=== PATIENT | female | born 1930 | race Caucasian/White ===

== ENCOUNTER 2016-10-06 21:00 | Inpatient (IN) | payer MEDICARE ==
[2016-10-06 21:43] VITALS: BP 159/74
[2016-10-06] MEDS: D5-0.45NS 1,000 ML IV SCH (23:40)
[2016-10-07] MEDS ORDERED: guaiFENesin 200 MG/10 ML UDC ONE (04:32)
[2016-10-07] MEDS: methylPREDNISolone SS 40 mg Vial IVP SCH ×3 (04:34→20:55)
[2016-10-07] MEDS ORDERED: Albuterol Nebulizer 2.5mg/3mL HHN ONE ×2 (04:36→07:49)
[2016-10-07] MEDS ORDERED: Ipratropium Neb 0.5 mg/2.5 mL UD HHN ONE ×2 (04:37→07:49)
[2016-10-07] MEDS: Ipratropium Neb 0.5 mg/2.5 mL UD IH SCH ×2 (04:43→07:29)
[2016-10-07] MEDS: guaiFENesin 200 MG/10 ML UDC PO PRN (04:46)
[2016-10-07] MEDS: INSULIN ASPART, RECOMBINANT 100 UNITS/ML SUBQ SCH ×4 (06:39→20:56)
[2016-10-07 07:07] LABS: % BASOPHILS 0.2 % (0.0-2.0); % EOSINOPHILS 0.1 % (0.0-5.0); % LYMPHOCYTES 10.9 % (20.0-50.0); % MONOCYTES 4.4 % (2.0-10.0); % NEUTROPHILS 84.4 % (40.0-80.0); HEMATOCRIT 34.6 % (35.0-45.0); HEMOGLOBIN 11.8 gm/dL (11.7-16.1); MEAN CORPUSCULAR HEMOGLOBIN 30.4 pg (27.0-31.0); MEAN CORPUSCULAR HGB CONC 34.2 pg (28.0-36.0); MEAN PLATELET VOLUME 7.4 fl; NEUTROPHILE ABSOLUTE 6.2 Th/cmm (1.8-8.0); PLATELET COUNT 231 Th/cmm (150-400); RED BLOOD COUNT 3.88 Mil/cmm (3.80-5.20); RED CELL DISTRIBUTION WIDTH 12.9 % (11.5-20.0); WHITE BLOOD COUNT 7.3 Th/cmm (4.8-10.8)
[2016-10-07 07:28] LABS: ALB/GLOB RATIO 1.2 (1.0-1.8); ALKALINE PHOSPHATASE 66 U/L (34-104); ANION GAP 10.3 (7.0-16.0); BILIRUBIN,TOTAL 0.3 mg/dL (0.3-1.0); BUN - UREA NITROGEN 22 mg/dL (7-25); CALCIUM SERUM 9.5 mg/dL (8.6-10.3); CARBON DIOXIDE 25.8 mEq/L (21.0-31.0); CHLORIDE 103 mEq/L (98-107); GLUCOSE 153 mg/dL (70-105); MAGNESIUM 2.2 mg/dL (1.9-2.7); POTASSIUM SERUM 4.1 mEq/L (3.5-5.1); SGOT 13 U/L (13-39); SGPT/ALT 9 U/L (7-52); SODIUM SERUM 135 mEq/L (136-145)
[2016-10-07] MEDS: Budesonide 0.5 Mg/2 mL Ud HHN SCH ×3 (07:29→19:49)
[2016-10-07] MEDS ORDERED: Budesonide 0.5 Mg/2 mL Ud HHN ONE (07:49)
[2016-10-07 08:04] LABS: URINE COLOR YELLOW
[2016-10-07 08:05] LABS: URINE BACTERIA NONE SEEN /hpf (NONE SEEN); URINE BILIRUBIN NEGATIVE (NEGATIVE); URINE BLOOD NEGATIVE (NEGATIVE); URINE EPITHELIAL CELLS FEW /lpf (FEW); URINE GLUCOSE (UA) NEGATIVE (NEGATIVE); URINE KETONE NEGATIVE (NEGATIVE); URINE PH 5.5; URINE PROTEIN NEGATIVE (NEGATIVE); URINE RBC 0-2 /hpf (0-5); URINE UROBILINOGEN 0.2 E.U./dL (0.2 - 1.0)
[2016-10-07] MEDS: Pantoprazole 40 mg EC Tab PO SCH (09:00)
[2016-10-07] MEDS ORDERED: Albuterol Nebulizer 2.5mg/3mL IH SCH (09:00)
--- NOTE | 2016-10-07 09:08 | Diagnostic Imaging Report ---
Portable chest x-ray History: Shortness of breath Allowing for portable technique the heart size is normal. No focal pulmonary parenchymal processes. No hilar or mediastinal abnormalities. Impression: No acute abnormalities.
--- NOTE | 2016-10-07 09:56 | Internal Medicine Prog Note ---
Internal Medicine Subjective - Subjective Service Date: 10/07/16 ([id number]) Internal Medicine Objective - Results Result Diagrams: 10/07/16 06:02 10/07/16 06:02 Recent Labs: Laboratory Last Values WBC 7.3 Th/cmm (4.8-10.8) 10/07/16 06:02 RBC 3.88 Mil/cmm (3.80-5.20) 10/07/16 06:02 Hgb 11.8 gm/dL (11.7-16.1) 10/07/16 06:02 Hct 34.6 % (35.0-45.0) L 10/07/16 06:02 MCV 89.0 fl (81-100) 10/07/16 06:02 MCH 30.4 pg (27.0-31.0) 10/07/16 06:02 MCHC Differential 34.2 pg (28.0-36.0) 10/07/16 06:02 RDW 12.9 % (11.5-20.0) 10/07/16 06:02 Plt Count 231 Th/cmm (150-400) 10/07/16 06:02 MPV 7.4 fl 10/07/16 06:02 Neutrophils % 84.4 % (40.0-80.0) H 10/07/16 06:02 Lymphocytes % 10.9 % (20.0-50.0) L 10/07/16 06:02 Monocytes % 4.4 % (2.0-10.0) 10/07/16 06:02 Eosinophils % 0.1 % (0.0-5.0) 10/07/16 06:02 Basophils % 0.2 % (0.0-2.0) 10/07/16 06:02 Sodium 135 mEq/L (136-145) L 10/07/16 06:02 Potassium 4.1 mEq/L (3.5-5.1) 10/07/16 06:02 Chloride 103 mEq/L (98-107) 10/07/16 06:02 Carbon Dioxide 25.8 mEq/L (21.0-31.0) 10/07/16 06:02 Anion Gap 10.3 (7.0-16.0) 10/07/16 06:02 BUN 22 mg/dL (7-25) 10/07/16 06:02 Creatinine 1.0 mg/dL (0.6-1.2) 10/07/16 06:02 Est GFR ( Amer) TNP 10/07/16 06:02 Est GFR (Non-Af Amer) TNP 10/07/16 06:02 BUN/Creatinine Ratio 22.0 10/07/16 06:02 Glucose 153 mg/dL (70-105) H 10/07/16 06:02 POC Glucose 162 MG/DL (70 - 105) H 10/07/16 06:38 Hemoglobin A1c % 5.3 % (4.0-6.0) 10/07/16 06:02 Calcium 9.5 mg/dL (8.6-10.3) 10/07/16 06:02 Magnesium 2.2 mg/dL (1.9-2.7) 10/07/16 06:02 Total Bilirubin 0.3 mg/dL (0.3-1.0) 10/07/16 06:02 AST 13 U/L (13-39) 10/07/16 06:02 ALT 9 U/L (7-52) 10/07/16 06:02 Alkaline Phosphatase 66 U/L (34-104) 10/07/16 06:02 Total Protein 7.1 gm/dL (6.0-8.3) 10/07/16 06:02 Albumin 3.9 gm/dL (3.7-5.3) 10/07/16 06:02 Globulin 3.2 gm/dL 10/07/16 06:02 Albumin/Globulin Ratio 1.2 (1.0-1.8) 10/07/16 06:02 TSH 0.66 uIU/ml (0.34-5.60) 10/07/16 06:02 Urine Source CLEAN C 10/07/16 07:05 Urine Color YELLOW 10/07/16 07:05 Urine Clarity CLEAR (CLEAR) 10/07/16 07:05 Urine pH 5.5 10/07/16 07:05 Ur Specific [place] 1.015 (1.005-1.030) 10/07/16 07:05 Urine Protein NEGATIVE mg/dL (NEGATIVE) 10/07/16 07:05 Urine Glucose (UA) NEGATIVE mg/dL (NEGATIVE) 10/07/16 07:05 Urine Ketones NEGATIVE mg/dL (NEGATIVE) 10/07/16 07:05 Urine Blood NEGATIVE (NEGATIVE) 10/07/16 07:05 Urine Nitrate NEGATIVE (NEGATIVE) 10/07/16 07:05 Urine Bilirubin NEGATIVE (NEGATIVE) 10/07/16 07:05 Urine Urobilinogen 0.2 E.U./dL (0.2 - 1.0) 10/07/16 07:05 Ur Leukocyte Esterase TRACE (NEGATIVE) H 10/07/16 07:05 Urine RBC 0-2 /hpf (0-5) 10/07/16 07:05 Urine WBC 2-5 /hpf (0-5) 10/07/16 07:05 Ur Epithelial Cells FEW /lpf (FEW) 10/07/16 07:05 Urine Bacteria NONE SEEN /hpf (NONE SEEN) 10/07/16 07:05 - Physical Exam Vitals and I&O: Vital Signs Temp 98.5 F 10/07/16 08:00 Pulse 90 10/07/16 09:00 Resp 96 10/07/16 08:00 BP 157/0 10/07/16 09:00 Pulse Ox 96 10/07/16 08:00 Intake & Output 10/06/16 10/07/16 10/07/16 18:59 06:59 18:59 Weight (lbs) 190 lb Active Medications: Current Medications Acetaminophen (Tylenol) 650 mg PO Q4HR PRN PRN Reason: Pain or Fever >101 Stop: 12/05/16 22:21 Albuterol Sulfate (Albuterol 2.5mg/3ml Neb Ud) 2.5 mg HHN QIDRT [facility] Stop: 12/06/16 08:59 Budesonide (Pulmicort) 0.5 mg HHN BIDRT [facility] Stop: 12/06/16 18:59 Donepezil HCl (Aricept) 5 mg PO DAILY [facility] Stop: 12/06/16 08:59 Last Admin: 10/07/16 09:00 Dose: 5 mg Gabapentin (Neurontin) 300 mg PO TID [facility] Stop: 12/06/16 08:59 Last Admin: 10/07/16 09:00 Dose: 300 mg Guaifenesin (Robitussin) 200 mg PO Q4HR PRN PRN Reason: Cough or Congestion Stop: 12/05/16 22:21 Last Admin: 10/07/16 04:46 Dose: 200 mg Dextrose/Sodium Chloride (D5-0.45ns) 1,000 mls @ 70 mls/hr IV .[id number] [facility] Stop: 12/05/16 22:29 Last Admin: 10/06/16 23:40 Dose: 70 mls/hr Cefepime HCl 1 gm/ Dextrose 50 mls @ 100 mls/hr IV Q12HR [facility] Stop: 12/06/16 08:59 Last Admin: 10/07/16 08:59 Dose: 100 mls/hr Insulin Aspart (Novolog) 0 units SUBQ ACHS [facility] PRN Reason: Protocol Stop: 12/06/16 07:29 Last Admin: 10/07/16 06:39 Dose: Not Given Ipratropium [place] (Atrovent Neb 0.5mg/2.5ml) 0.5 mg HHN QIDRT [facility] Stop: 12/06/16 08:59 Losartan Potassium (Cozaar) 50 mg PO DAILY [facility] Stop: 12/06/16 08:59 Last Admin: 10/07/16 09:00 Dose: 50 mg Methylprednisolone Sodium Succinate (Solu-Medrol) 80 mg IVP Q8HR [facility] Stop: 12/06/16 04:59 Last Admin: 10/07/16 04:34 Dose: 80 mg Ondansetron HCl (Zofran) 4 mg IV Q8H PRN PRN Reason: Nausea / Vomiting Stop: 12/05/16 22:21 Pantoprazole Sodium (Protonix) 40 mg PO DAILY [facility] Stop: 12/06/16 08:59 Last Admin: 10/07/16 09:00 Dose: 40 mg Zolpidem Tartrate (Ambien) 10 mg PO HS PRN PRN Reason: Insomnia Stop: 12/05/16 22:21 Internal Medicine Assmt/Plan - Assessment Assessment: ACUTE ASTHMA EXACERBATION POSSIBLE PNA DM-2 HTN OBESITY
[2016-10-07] MEDS ORDERED: Ipratropium Neb 0.5 mg/2.5 mL UD IH PRN (09:57)
[2016-10-07] MEDS ORDERED: Budesonide 0.5 Mg/2 mL Ud HHN SCH (10:00)
--- NOTE | 2016-10-07 10:31 | Admit Criteria Form ---
Admit Criteria Forms - Admit Criteria Diagnosis: ASTHMA Clinical Indications for Admission to Inpatient Care (Place 'X' for any and all applicable criteria): Admission is indicated for ANY ONE of the following (1)(2)(3)(4)(5): [ ]I. Absent or markedly diminished breath sounds (silent chest) [ ]II. Oxygen saturation < 92% [ ]III. PaCO2 = / > 42 mm Hg (5.6 kPa) [ ]IV. Peak expiratory flow rate < 40% of predicted or personal best after treatment. [ ]V. Peak expiratory flow rate < 33% of predicted or personal before after treatment [ ]. Change in mental status [ ]VII. Ventilatory support required [ ]VIII. PaO2 < 60 mm Hg (8.0 kPa) [ ]IX. Cyanosis [ ]X. Cardiac dysrhythmia (e.g., bradycardia) [ ]XI. Hemodynamic instability [ ]XII. Radiographic evidence of complication requiring inpatient treatment (e.g., pneumonia, pneumothorax) [X]XIII. Inpatient admission required rather than observation care (also use Asthma: Observation Care guideline as appropriate) because of ANY ONE of the following: [ ]a) Respiratory finding that is severe or persistent (eg, dyspnea, tachypnea, accessory muscle use) [ ]b) Airflow measurements less than 60% of predicted or personal best that persist (e.g., over 24 hours) or worsen despite treatments [ ]c) Supplemental oxygen or respiratory treatments for over 24 hours that are performable only in acute inpatient setting [X]d) Other condition, treatment or monitoring requiring inpatient admission. Extended stay beyond goal length of stay may be needed for (26)(27)(28): [ ]a) Severe respiratory failure (23) (29) (30) [ ]b) Secondary causes and complications (25) [ ]c) Status asthmaticus [ ]d) Chronic obstructive asthma [ ]e) Older patients (29) [ ]f) Slow resolution [ ]g) Clinically significant exacerbation of comorbidities (eg, miguelina. heart failure, atrial fibrillation) The original [facility] content created by [email or web address] has been revised. The portions of the content which have been revised are identified through the use of italic text or in bold, and [facility] has neither reviewed nor approved the modified material. All other unmodified content is copyright [facility] Please see references footnoted in the original [facility] edition 2016 Admit Criteria Met?: Yes
[2016-10-07] MEDS: Albuterol Nebulizer 2.5mg/3mL HHN SCH ×3 (10:53→19:49)
[2016-10-07] MEDS: Ipratropium Neb 0.5 mg/2.5 mL UD HHN SCH ×3 (10:54→19:49)
--- NOTE | 2016-10-07 12:45 | History & Physical ---
CHIEF COMPLAINT: Five-day history of cough. HISTORY OF PRESENT ILLNESS: This is an 85-year-old female with a 5-day history of shortness of breath and productive cough. According to the patient, due to the severity of her shortness of breath and wheezing, the patient was brought to the ER at [facility]. The patient denies any fevers, any chills, any recent travel outside of the . The patient states that she has despite of having breathing treatments at home, her wheezing was unrelieved. The patient also states that she was having chest pain, but she states it was more due to the cough. Due to insurance purposes, the patient is now here at [facility]. PAST MEDICAL HISTORY: Hypertension, type 2 diabetes, hypercholesterolemia, and GERD. PAST SURGICAL HISTORY: The patient stated that she had multiple surgeries, but cannot remember what of kind surgeries that she had. SOCIAL HISTORY: Denies any tobacco, illicit drug usage or any alcohol. FAMILY HISTORY: Noncontributory. REVIEW OF SYSTEMS: GENERAL: Denies any fevers, any chills. CARDIOVASCULAR: Denies any chest pain. RESPIRATORY: Complaints of off and on shortness of breath and wheezing with productive cough. GASTROINTESTINAL: Denies any nausea, vomiting. GENITOURINARY: Denies any dysuria. All other systems are reviewed by me and negative. PHYSICAL EXAMINATION: GENERAL: The patient is well developed, well nourished, no acute distress. VITAL SIGNS: Temperature 98.5, heart rate 90, blood pressure 137/70 and O2 saturation 96%. HEENT: Head; normocephalic, atraumatic. NECK: Supple. No mass. LUNGS: Wheezing bilaterally upon auscultation. HEART: Regular rhythm. ABDOMEN: Soft, nontender. ASSESSMENT: 1. Acute asthma exacerbation. 2. Possible pneumonia. 3. Hypertension. 4. Type 2 diabetes. PLAN: The patient to be admitted to the telemetry unit. We will have patient on supplemental oxygen, IV steroids and IV antibiotics. We will continue to monitor the patient. JOB# [id number]
[2016-10-07] MEDS: D5-0.45NS 1,000 ML IV SCH (16:30)
[2016-10-07] MEDS: Sodium Chloride 0.45% 1,000 ML IV SCH (19:04)
[2016-10-08] MEDS: methylPREDNISolone SS 40 mg Vial IVP SCH ×2 (04:44→13:24)
[2016-10-08] MEDS: Albuterol/Ipratropium Neb 3 ML AERS HHN PRN ×4 (05:24→16:44)
[2016-10-08] MEDS: guaiFENesin 200 MG/10 ML UDC PO PRN ×3 (05:50→20:22)
[2016-10-08 06:23] LABS: HEMATOCRIT 36.1 % (35.0-45.0); HEMOGLOBIN 12.3 gm/dL (11.7-16.1); MEAN CELL VOLUME 88.8 fl (81-100); MEAN CORPUSCULAR HEMOGLOBIN 30.2 pg (27.0-31.0); MEAN PLATELET VOLUME 7.6 fl; PLATELET COUNT 242 Th/cmm (150-400); RED BLOOD COUNT 4.06 Mil/cmm (3.80-5.20); RED CELL DISTRIBUTION WIDTH 12.3 % (11.5-20.0)
[2016-10-08] MEDS: INSULIN ASPART, RECOMBINANT 100 UNITS/ML SUBQ SCH ×4 (06:34→20:26)
[2016-10-08 06:35] LABS: ANION GAP 8.3 (7.0-16.0); BUN - UREA NITROGEN 30 mg/dL (7-25); CALCIUM SERUM 9.8 mg/dL (8.6-10.3); CARBON DIOXIDE 26.9 mEq/L (21.0-31.0); CHLORIDE 105 mEq/L (98-107); GLUCOSE 204 mg/dL (70-105); POTASSIUM SERUM 4.2 mEq/L (3.5-5.1); SODIUM SERUM 136 mEq/L (136-145)
[2016-10-08 06:57] LABS: WHITE BLOOD COUNT 10.1 Th/cmm (4.8-10.8)
[2016-10-08] MEDS: Albuterol Nebulizer 2.5mg/3mL HHN SCH ×2 (07:33→11:09)
[2016-10-08] MEDS: Budesonide 0.5 Mg/2 mL Ud HHN SCH ×2 (07:34→19:20)
[2016-10-08] MEDS: Ipratropium Neb 0.5 mg/2.5 mL UD HHN SCH ×2 (07:34→11:09)
[2016-10-08 07:46] LABS: BAND NEUTROPHILE 2 % (0-10); NEUTROPHILS 87 % (40-80); PLATELET ESTIMATE ADEQUATE (NORMAL); PLATELET MORPHOLOGY NORMAL (NORMAL); TOTAL CELLS COUNTED 100
[2016-10-08] MEDS: Pantoprazole 40 mg EC Tab PO SCH (09:23)
--- NOTE | 2016-10-08 14:38 | Internal Medicine Prog Note ---
Internal Medicine Subjective - Subjective Service Date: 10/08/16 (audible wheezes with productive cough. ) Patient seen and examined:: with staff Patient is:: awake Per staff patient is:: no adverse event Internal Medicine Objective - Results Result Diagrams: 10/08/16 05:30 10/08/16 05:30 Recent Labs: Laboratory Last Values WBC 10.1 Th/cmm (4.8-10.8) D 10/08/16 05:30 RBC 4.06 Mil/cmm (3.80-5.20) 10/08/16 05:30 Hgb 12.3 gm/dL (11.7-16.1) 10/08/16 05:30 Hct 36.1 % (35.0-45.0) 10/08/16 05:30 MCV 88.8 fl (81-100) 10/08/16 05:30 MCH 30.2 pg (27.0-31.0) 10/08/16 05:30 MCHC Differential 34.0 pg (28.0-36.0) 10/08/16 05:30 RDW 12.3 % (11.5-20.0) 10/08/16 05:30 Plt Count 242 Th/cmm (150-400) 10/08/16 05:30 MPV 7.6 fl 10/08/16 05:30 Neutrophils % 84.4 % (40.0-80.0) H 10/07/16 06:02 Band Neutrophils % 2 % (0-10) 10/08/16 05:30 Lymphocytes % 10.9 % (20.0-50.0) L 10/07/16 06:02 Monocytes % 4.4 % (2.0-10.0) 10/07/16 06:02 Eosinophils % 0.1 % (0.0-5.0) 10/07/16 06:02 Basophils % 0.2 % (0.0-2.0) 10/07/16 06:02 Neutrophils (Manual) 87 % (40-80) H 10/08/16 05:30 Lymphocytes 9 % (20-50) L 10/08/16 05:30 Monocytes 2 % (2-10) 10/08/16 05:30 Platelet Estimate ADEQUATE (NORMAL) 10/08/16 05:30 Platelet Morphology NORMAL (NORMAL) 10/08/16 05:30 RBC Morph Micro Appear NORMAL (NORMAL) 10/08/16 05:30 Sodium 136 mEq/L (136-145) 10/08/16 05:30 Potassium 4.2 mEq/L (3.5-5.1) 10/08/16 05:30 Chloride 105 mEq/L (98-107) 10/08/16 05:30 Carbon Dioxide 26.9 mEq/L (21.0-31.0) 10/08/16 05:30 Anion Gap 8.3 (7.0-16.0) 10/08/16 05:30 BUN 30 mg/dL (7-25) H 10/08/16 05:30 Creatinine 1.0 mg/dL (0.6-1.2) 10/08/16 05:30 Est GFR ( Amer) TNP 10/08/16 05:30 Est GFR (Non-Af Amer) TNP 10/08/16 05:30 BUN/Creatinine Ratio 30.0 10/08/16 05:30 Glucose 204 mg/dL (70-105) H 10/08/16 05:30 POC Glucose 201 MG/DL (70 - 105) H 10/08/16 05:34 Hemoglobin A1c % 5.3 % (4.0-6.0) 10/07/16 06:02 Calcium 9.8 mg/dL (8.6-10.3) 10/08/16 05:30 Magnesium 2.2 mg/dL (1.9-2.7) 10/07/16 06:02 Total Bilirubin 0.3 mg/dL (0.3-1.0) 10/07/16 06:02 AST 13 U/L (13-39) 10/07/16 06:02 ALT 9 U/L (7-52) 10/07/16 06:02 Alkaline Phosphatase 66 U/L (34-104) 10/07/16 06:02 Total Protein 7.1 gm/dL (6.0-8.3) 10/07/16 06:02 Albumin 3.9 gm/dL (3.7-5.3) 10/07/16 06:02 Globulin 3.2 gm/dL 10/07/16 06:02 Albumin/Globulin Ratio 1.2 (1.0-1.8) 10/07/16 06:02 TSH 0.66 uIU/ml (0.34-5.60) 10/07/16 06:02 Urine Source CLEAN C 10/07/16 07:05 Urine Color YELLOW 10/07/16 07:05 Urine Clarity CLEAR (CLEAR) 10/07/16 07:05 Urine pH 5.5 10/07/16 07:05 Ur Specific [place] 1.015 (1.005-1.030) 10/07/16 07:05 Urine Protein NEGATIVE mg/dL (NEGATIVE) 10/07/16 07:05 Urine Glucose (UA) NEGATIVE mg/dL (NEGATIVE) 10/07/16 07:05 Urine Ketones NEGATIVE mg/dL (NEGATIVE) 10/07/16 07:05 Urine Blood NEGATIVE (NEGATIVE) 10/07/16 07:05 Urine Nitrate NEGATIVE (NEGATIVE) 10/07/16 07:05 Urine Bilirubin NEGATIVE (NEGATIVE) 10/07/16 07:05 Urine Urobilinogen 0.2 E.U./dL (0.2 - 1.0) 10/07/16 07:05 Ur Leukocyte Esterase TRACE (NEGATIVE) H 10/07/16 07:05 Urine RBC 0-2 /hpf (0-5) 10/07/16 07:05 Urine WBC 2-5 /hpf (0-5) 10/07/16 07:05 Ur Epithelial Cells FEW /lpf (FEW) 10/07/16 07:05 Urine Bacteria NONE SEEN /hpf (NONE SEEN) 10/07/16 07:05 - Physical Exam Vitals and I&O: Vital Signs Temp 97.9 F 10/08/16 12:00 Pulse 87 10/08/16 13:52 Resp 16 10/08/16 13:52 BP 116/60 10/08/16 12:00 Pulse Ox 98 10/08/16 13:52 Intake & Output 10/07/16 10/08/16 10/08/16 18:59 06:59 18:59 Intake Total 1050 200 50 Balance 1050 200 50 Intake: Intake, IV Amount 1050 50 50 Cefepime 1 gm In Dextrose 50 50 50 5% 50 ml @ 100 mls/hr IV Q12HR [facility] Rx#:[id number] D5-0.45NS 1,000 ml @ 70 1000 mls/hr IV .[id number] [facility] Rx #:[id number] Oral 150 Other: # Voids 4 # Bowel Movements 0 Active Medications: Current Medications Acetaminophen (Tylenol) 650 mg PO Q4HR PRN PRN Reason: Pain or Fever >101 Stop: 12/05/16 22:21 Albuterol Sulfate (Albuterol 2.5mg/3ml Neb Ud) 2.5 mg HHN QIDRT [facility] Stop: 12/06/16 08:59 Last Admin: 10/08/16 11:09 Dose: 2.5 mg Albuterol/Ipratropium (Duoneb Neb) 3 ml HHN Q2HR PRN PRN Reason: Shortness of Breath or Wheeze Stop: 12/06/16 09:56 Last Admin: 10/08/16 13:51 Dose: 3 ml Budesonide (Pulmicort) 0.5 mg HHN BIDRT [facility] Stop: 12/06/16 18:59 Last Admin: 10/08/16 07:34 Dose: 0.5 mg Donepezil HCl (Aricept) 5 mg PO DAILY [facility] Stop: 12/06/16 08:59 Last Admin: 10/08/16 09:23 Dose: 5 mg Gabapentin (Neurontin) 300 mg PO TID [facility] Stop: 12/06/16 08:59 Last Admin: 10/08/16 13:24 Dose: 300 mg Guaifenesin (Robitussin) 200 mg PO Q4HR PRN PRN Reason: Cough or Congestion Stop: 12/05/16 22:21 Last Admin: 10/08/16 13:27 Dose: 200 mg Cefepime HCl 1 gm/ Dextrose 50 mls @ 100 mls/hr IV Q12HR [facility] Stop: 12/06/16 08:59 Last Infusion: 10/08/16 10:00 Dose: Infused Sodium Chloride (Nacl 0.45%) 1,000 mls @ 70 mls/hr IV .[id number] [facility] Stop: 12/06/16 18:29 Last Admin: 10/07/16 19:04 Dose: 70 mls/hr Insulin Aspart (Novolog) 0 units SUBQ ACHS [facility] PRN Reason: Protocol Stop: 12/06/16 20:59 Last Admin: 10/08/16 12:09 Dose: Not Given Ipratropium [place] (Atrovent Neb 0.5mg/2.5ml) 0.5 mg HHN QIDRT [facility] Stop: 12/06/16 08:59 Last Admin: 10/08/16 11:09 Dose: 0.5 mg Losartan Potassium (Cozaar) 50 mg PO DAILY [facility] Stop: 12/06/16 08:59 Last Admin: 10/08/16 09:23 Dose: 50 mg Methylprednisolone Sodium Succinate (Solu-Medrol) 80 mg IVP Q8HR [facility] Stop: 12/06/16 04:59 Last Admin: 10/08/16 13:24 Dose: 80 mg Ondansetron HCl (Zofran) 4 mg IV Q8H PRN PRN Reason: Nausea / Vomiting Stop: 12/05/16 22:21 Pantoprazole Sodium (Protonix) 40 mg PO DAILY [facility] Stop: 12/06/16 08:59 Last Admin: 10/08/16 09:23 Dose: 40 mg Zolpidem Tartrate (Ambien) 10 mg PO HS PRN PRN Reason: Insomnia Stop: 12/05/16 22:21 General: alert HEENT: NC/AT, PERRLA Neck: Supple Lungs: CTAB Cardiovascular: RRR, Normal S1, Normal S2, without murmur Abdomen: soft non-tender, non-distended Extremities: clear Internal Medicine Assmt/Plan - Assessment Assessment: ACUTE ASTHMA EXACERBATION POSSIBLE PNA DM-2 HTN OBESITY - Plan Plan: continue bronchodilators pulmo consult f/u labs in am continue ivabx/iv solumedrol pulmonary toileting
[2016-10-08] MEDS: methylPREDNISolone SS 40 mg Vial IV SCH ×3 (17:04→23:46)
[2016-10-08] MEDS: Pantoprazole 40 mg/Packet PO SCH (17:06)
[2016-10-08] MEDS: Albuterol/Ipratropium Neb 3 ML AERS HHN SCH ×2 (19:20→22:30)
[2016-10-08] MEDS ORDERED: methylPREDNISolone SS 40 mg Vial ONE (23:40)
--- NOTE | 2016-10-09 00:05 | Consultation ---
REASON FOR CONSULTATION: Shortness of breath. HISTORY OF PRESENT ILLNESS: This is an 85-year-old female who came with history of few days' history of coughing, wheezing, shortness of breath. Subsequently, the patient started having more wheezing and more coughing, which was nonproductive. Subsequently, the patient was taken to a local hospital and subsequently, the patient because of insurance reason was ____. Does not recall of any fever, any chest pain, any though questionable chills, no swelling of the legs. No PND or orthopnea. Does carry a history of hypertension, diabetic mellitus, dyslipoproteinemia and GERD. Also, has a history suggestive of obstructive sleep apnea syndrome. PAST MEDICAL HISTORY: She has multiple history of surgeries though cannot exactly tell what it is. SMOKING HISTORY: Nil. Denies of any alcohol or illicit drug use, etc. ALLERGIC HISTORY: Nil. PHYSICAL FINDINGS: GENERAL: This is a middle-aged heavy set looking female, awake, audibly wheezing, not in any acute distress with very minimal accessory muscle user____. VITAL SIGNS: The patient's temperature is 97.9, respiration rate is in 19s, saturation is 98 on 2 L. HEENT: Examination of the head is essentially unremarkable. Pupils appear to be equal and reacting to light. Conjunctivae are slightly pallor. Oral cavity essentially unremarkable with edentulous, with small oropharyngeal opening. CHEST: Shows scattered wheezing with marked diminished air entry. HEART: Regular. ABDOMEN: Soft, nontender. EXTREMITIES: Shows no peripheral edema. LABORATORY DATA: The patient's chest x-ray shows slight interstitial changes, very minimally with poor inflated lung. White count is 10.1, neutrophils 87 and BUN is 30 and sugar is on higher side. IMPRESSION: 1. The patient has acute asthmatic bronchitis with early respiratory failure, possibly viral. 2. Suspect obstructive sleep apnea syndrome. 3. Morbid obesity with obesity hypoventilation syndrome with gastroesophageal reflux disease as well as hypertension, diabetes mellitus. PLANS AND SUGGESTIONS: We will get a sputum for C and S. We will get an influenza titer. We will increase the frequency of steroid. We will give high-dose of inhaled steroid, also does a DuoNeb and also add Protonix b.i.d. and we will recheck x-rays, some of the lab test in next 24 hours, and see how she does and go from there. [facility]# [id number]
[2016-10-09] MEDS: Sodium Chloride 0.45% 1,000 ML IV SCH (00:43)
[2016-10-09] MEDS: guaiFENesin 200 MG/10 ML UDC PO PRN ×2 (00:51→11:37)
[2016-10-09] MEDS: Albuterol/Ipratropium Neb 3 ML AERS HHN SCH ×6 (03:28→22:58)
[2016-10-09] MEDS: methylPREDNISolone SS 40 mg Vial IV SCH ×5 (04:04→21:26)
[2016-10-09] MEDS: INSULIN ASPART, RECOMBINANT 100 UNITS/ML SUBQ SCH ×4 (06:33→21:36)
[2016-10-09] MEDS: Budesonide 0.5 Mg/2 mL Ud HHN SCH ×2 (06:49→19:56)
[2016-10-09 08:57] LABS: ABG SOURCE Arterial; BE(B) 1.1 mEq/L (-3.0-3.0); HCO3 25.5 mEq/L (20.0-26.0); pH 7.38 (7.35-7.45)
[2016-10-09 08:58] LABS: CRITICAL VALUES REPORTED BY SH; FIO2 21
[2016-10-09] MEDS: Pantoprazole 40 mg EC Tab PO SCH ×2 (09:55→17:07)
[2016-10-09] MEDS: Pantoprazole 40 mg/Packet PO SCH (09:55)
--- NOTE | 2016-10-09 10:07 | Diagnostic Imaging Report ---
CHEST X-RAY: AP view INDICATION: Bronchitis COMPARISON: Chest x-ray 10/07/2016 FINDINGS: Chronic changes are seen with no focal consolidation or effusions. Heart size normal. Atherosclerosis is noted. IMPRESSION: No focal consolidation identified Atherosclerotic vascular disease.
[2016-10-09 11:14] LABS: HEMATOCRIT 33.8 % (35.0-45.0); HEMOGLOBIN 11.8 gm/dL (11.7-16.1); MEAN CELL VOLUME 88.6 fl (81-100); MEAN CORPUSCULAR HGB CONC 34.9 pg (28.0-36.0); MEAN PLATELET VOLUME 7.3 fl; PLATELET COUNT 233 Th/cmm (150-400); RED BLOOD COUNT 3.82 Mil/cmm (3.80-5.20); RED CELL DISTRIBUTION WIDTH 12.6 % (11.5-20.0); WHITE BLOOD COUNT 10.4 Th/cmm (4.8-10.8)
[2016-10-09 11:32] LABS: ANION GAP 6.7 (7.0-16.0); BUN - UREA NITROGEN 32 mg/dL (7-25); CALCIUM SERUM 9.4 mg/dL (8.6-10.3); CARBON DIOXIDE 25.2 mEq/L (21.0-31.0); CHLORIDE 104 mEq/L (98-107); GLUCOSE 238 mg/dL (70-105); POTASSIUM SERUM 3.9 mEq/L (3.5-5.1); SODIUM SERUM 132 mEq/L (136-145)
[2016-10-09 12:15] LABS: BAND NEUTROPHILE 3 % (0-10); NEUTROPHILS 92 % (40-80); PLATELET ESTIMATE ADEQUATE (NORMAL); PLATELET MORPHOLOGY NORMAL (NORMAL); TOTAL CELLS COUNTED 100
--- NOTE | 2016-10-09 15:37 | Internal Medicine Prog Note ---
Internal Medicine Subjective - Subjective Patient seen and examined:: with staff, chart reviewed Patient is:: awake, verbal, interactive Patient Complaints of:: congestion, sore throat Per staff patient is:: no adverse event, poor appetite Internal Medicine Objective - Results Result Diagrams: 10/09/16 11:05 10/09/16 11:05 Recent Labs: Laboratory Last Values WBC 10.4 Th/cmm (4.8-10.8) 10/09/16 11:05 RBC 3.82 Mil/cmm (3.80-5.20) 10/09/16 11:05 Hgb 11.8 gm/dL (11.7-16.1) 10/09/16 11:05 Hct 33.8 % (35.0-45.0) L 10/09/16 11:05 MCV 88.6 fl (81-100) 10/09/16 11:05 MCH 31.0 pg (27.0-31.0) 10/09/16 11:05 MCHC Differential 34.9 pg (28.0-36.0) 10/09/16 11:05 RDW 12.6 % (11.5-20.0) 10/09/16 11:05 Plt Count 233 Th/cmm (150-400) 10/09/16 11:05 MPV 7.3 fl 10/09/16 11:05 Neutrophils % 84.4 % (40.0-80.0) H 10/07/16 06:02 Band Neutrophils % 3 % (0-10) 10/09/16 11:05 Lymphocytes % 10.9 % (20.0-50.0) L 10/07/16 06:02 Monocytes % 4.4 % (2.0-10.0) 10/07/16 06:02 Eosinophils % 0.1 % (0.0-5.0) 10/07/16 06:02 Basophils % 0.2 % (0.0-2.0) 10/07/16 06:02 Neutrophils (Manual) 92 % (40-80) H 10/09/16 11:05 Lymphocytes 4 % (20-50) L 10/09/16 11:05 Monocytes 1 % (2-10) L 10/09/16 11:05 Platelet Estimate ADEQUATE (NORMAL) 10/09/16 11:05 Platelet Morphology NORMAL (NORMAL) 10/09/16 11:05 RBC Morph Micro Appear NORMAL (NORMAL) 10/09/16 11:05 Specimen Source Arterial 10/09/16 08:30 Sample Site RB 10/09/16 08:30 pH 7.38 (7.35-7.45) 10/09/16 08:30 pCO2 45.0 mmHg (35.0-45.0) 10/09/16 08:30 pO2 50.0 mmHg (80.0-100.0) L 10/09/16 08:30 HCO3 25.5 mEq/L (20.0-26.0) 10/09/16 08:30 Base Excess 1.1 mEq/L (-3.0-3.0) 10/09/16 08:30 O2 Saturation 84.0 % (92.0-100.0) L 10/09/16 08:30 Babar Test NA 10/09/16 08:30 Vent Rate NA 10/09/16 08:30 Inspired O2 21 10/09/16 08:30 Tidal Volume NA 10/09/16 08:30 PEEP NA 10/09/16 08:30 Pressure (ins/psv/peep) NA 10/09/16 08:30 Critical Value SH 10/09/16 08:30 Sodium 132 mEq/L (136-145) L 10/09/16 11:05 Potassium 3.9 mEq/L (3.5-5.1) 10/09/16 11:05 Chloride 104 mEq/L (98-107) 10/09/16 11:05 Carbon Dioxide 25.2 mEq/L (21.0-31.0) 10/09/16 11:05 Anion Gap 6.7 (7.0-16.0) L 10/09/16 11:05 BUN 32 mg/dL (7-25) H 10/09/16 11:05 Creatinine 1.0 mg/dL (0.6-1.2) 10/09/16 11:05 Est GFR ( Amer) TNP 10/09/16 11:05 Est GFR (Non-Af Amer) TNP 10/09/16 11:05 BUN/Creatinine Ratio 32.0 10/09/16 11:05 Glucose 238 mg/dL (70-105) H 10/09/16 11:05 POC Glucose 216 MG/DL (70 - 105) H 10/09/16 11:39 Hemoglobin A1c % 5.3 % (4.0-6.0) 10/07/16 06:02 Calcium 9.4 mg/dL (8.6-10.3) 10/09/16 11:05 Magnesium 2.2 mg/dL (1.9-2.7) 10/07/16 06:02 Total Bilirubin 0.3 mg/dL (0.3-1.0) 10/07/16 06:02 AST 13 U/L (13-39) 10/07/16 06:02 ALT 9 U/L (7-52) 10/07/16 06:02 Alkaline Phosphatase 66 U/L (34-104) 10/07/16 06:02 Total Protein 7.1 gm/dL (6.0-8.3) 10/07/16 06:02 Albumin 3.9 gm/dL (3.7-5.3) 10/07/16 06:02 Globulin 3.2 gm/dL 10/07/16 06:02 Albumin/Globulin Ratio 1.2 (1.0-1.8) 10/07/16 06:02 TSH 0.66 uIU/ml (0.34-5.60) 10/07/16 06:02 Urine Source CLEAN C 10/07/16 07:05 Urine Color YELLOW 10/07/16 07:05 Urine Clarity CLEAR (CLEAR) 10/07/16 07:05 Urine pH 5.5 10/07/16 07:05 Ur Specific [place] 1.015 (1.005-1.030) 10/07/16 07:05 Urine Protein NEGATIVE mg/dL (NEGATIVE) 10/07/16 07:05 Urine Glucose (UA) NEGATIVE mg/dL (NEGATIVE) 10/07/16 07:05 Urine Ketones NEGATIVE mg/dL (NEGATIVE) 10/07/16 07:05 Urine Blood NEGATIVE (NEGATIVE) 10/07/16 07:05 Urine Nitrate NEGATIVE (NEGATIVE) 10/07/16 07:05 Urine Bilirubin NEGATIVE (NEGATIVE) 10/07/16 07:05 Urine Urobilinogen 0.2 E.U./dL (0.2 - 1.0) 10/07/16 07:05 Ur Leukocyte Esterase TRACE (NEGATIVE) H 10/07/16 07:05 Urine RBC 0-2 /hpf (0-5) 10/07/16 07:05 Urine WBC 2-5 /hpf (0-5) 10/07/16 07:05 Ur Epithelial Cells FEW /lpf (FEW) 10/07/16 07:05 Urine Bacteria NONE SEEN /hpf (NONE SEEN) 10/07/16 07:05 Influenza A (Rapid) NEG FOR INF A 10/08/16 22:45 Influenza B (Rapid) NEG FOR INF B 10/08/16 22:45 - Physical Exam Vitals and I&O: Vital Signs Temp 97.8 F 10/09/16 08:48 Pulse 80 10/09/16 14:12 Resp 16 10/09/16 14:12 BP 162/82 10/09/16 09:55 Pulse Ox 98 10/09/16 14:12 Intake & Output 10/08/16 10/09/16 10/09/16 18:59 06:59 18:59 Intake Total 1050 450 Balance 1050 450 Intake: Intake, IV Amount 1050 50 Cefepime 1 gm In Dextrose 50 50 5% 50 ml @ 100 mls/hr IV Q12HR [facility] Rx#:[id number] Sodium Chloride 0.45% 1, 1000 000 ml @ 70 mls/hr IV . [id number] [facility] Rx#:[id number] Oral 400 Other: # Voids 2 Active Medications: Current Medications Acetaminophen (Tylenol) 650 mg PO Q4HR PRN PRN Reason: Pain or Fever >101 Stop: 12/05/16 22:21 Albuterol/Ipratropium (Duoneb Neb) 3 ml HHN Q2HR PRN PRN Reason: Shortness of Breath or Wheeze Stop: 12/06/16 09:56 Last Admin: 10/08/16 16:44 Dose: 3 ml Albuterol/Ipratropium (Duoneb Neb) 3 ml HHN Q4HRT [facility] Stop: 12/07/16 18:59 Last Admin: 10/09/16 14:11 Dose: 3 ml Budesonide (Pulmicort) 1 mg HHN BIDRT [facility] Stop: 12/07/16 18:59 Last Admin: 10/09/16 06:49 Dose: 1 mg Donepezil HCl (Aricept) 5 mg PO DAILY [facility] Stop: 12/06/16 08:59 Last Admin: 10/09/16 09:59 Dose: 5 mg Gabapentin (Neurontin) 300 mg PO TID [facility] Stop: 12/06/16 08:59 Last Admin: 10/09/16 13:34 Dose: 300 mg Guaifenesin (Robitussin) 200 mg PO Q4HR PRN PRN Reason: Cough or Congestion Stop: 12/05/16 22:21 Last Admin: 10/09/16 11:37 Dose: 200 mg Cefepime HCl 1 gm/ Dextrose 50 mls @ 100 mls/hr IV Q12HR [facility] Stop: 12/06/16 08:59 Last Admin: 10/09/16 09:54 Dose: 100 mls/hr Sodium Chloride (Nacl 0.45%) 1,000 mls @ 70 mls/hr IV .[id number] [facility] Stop: 12/06/16 18:29 Last Admin: 10/09/16 00:43 Dose: 70 mls/hr Insulin Aspart (Novolog) 0 units SUBQ ACHS [facility] PRN Reason: Protocol Stop: 12/06/16 20:59 Last Admin: 10/09/16 12:23 Dose: 2 units Losartan Potassium (Cozaar) 50 mg PO DAILY [facility] Stop: 12/06/16 08:59 Last Admin: 10/09/16 09:55 Dose: 50 mg Methylprednisolone Sodium Succinate (Solu-Medrol) 40 mg IV Q4HR [facility] Stop: 12/07/16 15:59 Last Admin: 10/09/16 10:32 Dose: 40 mg Ondansetron HCl (Zofran) 4 mg IV Q8H PRN PRN Reason: Nausea / Vomiting Stop: 12/05/16 22:21 Pantoprazole Sodium (Protonix) 40 mg PO BID [facility] Stop: 12/08/16 16:59 Zolpidem Tartrate (Ambien) 10 mg PO HS PRN PRN Reason: Insomnia Stop: 12/05/16 22:21 Last Admin: 10/08/16 20:22 Dose: 10 mg General: congested HEENT: NC/AT, PERRLA Neck: Supple, No JVD Lungs: congested, rales, ronchi Cardiovascular: RRR, Normal S1, Normal S2 Abdomen: soft non-tender, globular, positive bowel sound Extremities: excoriation Neurological: no change Internal Medicine Assmt/Plan - Assessment Assessment: ACUTE ASTHMA EXACERBATION POSSIBLE PNA DM-2 HTN OBESITY - Plan Plan: cont on iv abx cont on iv steroid o2 bronchodilator tx check cxr felicita aguilar
--- NOTE | 2016-10-10 00:40 | Progress Notes ---
PULMONARY PROGRESS NOTE PROBLEM LIST: 1. Severe asthmatic bronchitis. 2. Suspect obstructive sleep apnea syndrome. 3. Diabetes mellitus. 4. Morbid obesity. SYMPTOMS: The patient still complains of shortness of breath, wheezing is much less, and no sputum production. No chest pain. PHYSICAL EXAMINATION: VITAL SIGNS: The patient's temperature is 97.8, blood pressure 162/82, and saturation 96. ENT: Shows no new changes. CHEST: Shows scattered wheezing with diminished air entry. HEART: Regular. ABDOMEN: Soft and nontender. LABORATORY DATA: White count is 10.4 and hemoglobin 11.8. ABG shows pO2 of 50 on room air with pCO2 of 45 and electrolytes shows BUN is 32. Creatinine is 1. ASSESSMENT: The patient is clinically slightly better with asthmatic bronchitis, suspect obstructive sleep apnea syndrome with diabetes mellitus. PLANS AND SUGGESTIONS: We will go ahead and continue current treatment, start mobilizing and also if she remains stable tomorrow, may consider tapering the steroid and go from there. JOB# [id number]
[2016-10-10] MEDS: methylPREDNISolone SS 40 mg Vial IV SCH ×4 (02:01→11:53)
[2016-10-10] MEDS: Albuterol/Ipratropium Neb 3 ML AERS HHN SCH ×6 (03:01→22:16)
[2016-10-10 06:19] LABS: FOLIC ACID 5.3 ng/mL (>3.0)
[2016-10-10] MEDS ORDERED: methylPREDNISolone SS 40 mg Vial ONE (06:36)
[2016-10-10] MEDS: Sodium Chloride 0.45% 1,000 ML IV SCH (06:46)
[2016-10-10] MEDS: INSULIN ASPART, RECOMBINANT 100 UNITS/ML SUBQ SCH ×4 (06:47→21:16)
[2016-10-10 07:02] LABS: HEMATOCRIT 34.9 % (35.0-45.0); HEMOGLOBIN 11.9 gm/dL (11.7-16.1); MEAN CORPUSCULAR HEMOGLOBIN 29.9 pg (27.0-31.0); MEAN PLATELET VOLUME 7.2 fl; PLATELET COUNT 261 Th/cmm (150-400); RED BLOOD COUNT 3.96 Mil/cmm (3.80-5.20); RED CELL DISTRIBUTION WIDTH 12.2 % (11.5-20.0); WHITE BLOOD COUNT 8.8 Th/cmm (4.8-10.8)
[2016-10-10 07:36] LABS: ALB/GLOB RATIO 1.4 (1.0-1.8); ALKALINE PHOSPHATASE 57 U/L (34-104); ANION GAP 6.9 (7.0-16.0); BILIRUBIN,TOTAL 0.3 mg/dL (0.3-1.0); BUN - UREA NITROGEN 32 mg/dL (7-25); CALCIUM SERUM 9.4 mg/dL (8.6-10.3); CHLORIDE 104 mEq/L (98-107); GLUCOSE 171 mg/dL (70-105); POTASSIUM SERUM 3.9 mEq/L (3.5-5.1); SGOT 21 U/L (13-39); SGPT/ALT 20 U/L (7-52); SODIUM SERUM 135 mEq/L (136-145)
[2016-10-10 08:16] LABS: BAND NEUTROPHILE 2 % (0-10); METAMYELOCYTE 1 % (0-0); NEUTROPHILS 87 % (40-80); PLATELET ESTIMATE ADEQUATE (NORMAL); PLATELET MORPHOLOGY NORMAL (NORMAL); TOTAL CELLS COUNTED 100
[2016-10-10] MEDS: Budesonide 0.5 Mg/2 mL Ud HHN SCH ×2 (08:19→19:09)
--- NOTE | 2016-10-10 09:18 | Diagnostic Imaging Report ---
CHEST X-RAY: AP view INDICATION: Pneumonia COMPARISON: Chest x-ray 10/09/2016 FINDINGS: Mild chronic changes are seen with no focal consolidation or effusions. Heart size is at the upper limits of normal. Atherosclerosis is noted. IMPRESSION: No focal consolidation identified. No significant change.
[2016-10-10] MEDS: Pantoprazole 40 mg EC Tab PO SCH ×2 (09:23→17:27)
--- NOTE | 2016-10-10 15:22 | Internal Medicine Prog Note ---
Internal Medicine Subjective - Subjective Patient seen and examined:: with staff, chart reviewed Patient is:: awake, verbal, interactive Patient Complaints of:: congestion, sore throat Per staff patient is:: no adverse event, no episodes of fall, poor appetite, poor oral intake Internal Medicine Objective - Results Result Diagrams: 10/10/16 06:06 10/10/16 06:06 Recent Labs: Laboratory Last Values WBC 8.8 Th/cmm (4.8-10.8) 10/10/16 06:06 RBC 3.96 Mil/cmm (3.80-5.20) 10/10/16 06:06 Hgb 11.9 gm/dL (11.7-16.1) 10/10/16 06:06 Hct 34.9 % (35.0-45.0) L 10/10/16 06:06 MCV 88.0 fl (81-100) 10/10/16 06:06 MCH 29.9 pg (27.0-31.0) 10/10/16 06:06 MCHC Differential 34.0 pg (28.0-36.0) 10/10/16 06:06 RDW 12.2 % (11.5-20.0) 10/10/16 06:06 Plt Count 261 Th/cmm (150-400) 10/10/16 06:06 MPV 7.2 fl 10/10/16 06:06 Neutrophils % 84.4 % (40.0-80.0) H 10/07/16 06:02 Band Neutrophils % 2 % (0-10) 10/10/16 06:06 Lymphocytes % 10.9 % (20.0-50.0) L 10/07/16 06:02 Monocytes % 4.4 % (2.0-10.0) 10/07/16 06:02 Eosinophils % 0.1 % (0.0-5.0) 10/07/16 06:02 Basophils % 0.2 % (0.0-2.0) 10/07/16 06:02 Neutrophils (Manual) 87 % (40-80) H 10/10/16 06:06 Lymphocytes 9 % (20-50) L 10/10/16 06:06 Monocytes 1 % (2-10) L 10/10/16 06:06 Metamyelocytes 1 % (0-0) H 10/10/16 06:06 Platelet Estimate ADEQUATE (NORMAL) 10/10/16 06:06 Platelet Morphology NORMAL (NORMAL) 10/10/16 06:06 RBC Morph Micro Appear NORMAL (NORMAL) 10/10/16 06:06 Specimen Source Arterial 10/09/16 08:30 Sample Site RB 10/09/16 08:30 pH 7.38 (7.35-7.45) 10/09/16 08:30 pCO2 45.0 mmHg (35.0-45.0) 10/09/16 08:30 pO2 50.0 mmHg (80.0-100.0) L 10/09/16 08:30 HCO3 25.5 mEq/L (20.0-26.0) 10/09/16 08:30 Base Excess 1.1 mEq/L (-3.0-3.0) 10/09/16 08:30 O2 Saturation 84.0 % (92.0-100.0) L 10/09/16 08:30 Babar Test NA 10/09/16 08:30 Vent Rate NA 10/09/16 08:30 Inspired O2 21 10/09/16 08:30 Tidal Volume NA 10/09/16 08:30 PEEP NA 10/09/16 08:30 Pressure (ins/psv/peep) NA 10/09/16 08:30 Critical Value SH 10/09/16 08:30 Sodium 135 mEq/L (136-145) L 10/10/16 06:06 Potassium 3.9 mEq/L (3.5-5.1) 10/10/16 06:06 Chloride 104 mEq/L (98-107) 10/10/16 06:06 Carbon Dioxide 28.0 mEq/L (21.0-31.0) 10/10/16 06:06 Anion Gap 6.9 (7.0-16.0) L 10/10/16 06:06 BUN 32 mg/dL (7-25) H 10/10/16 06:06 Creatinine 1.0 mg/dL (0.6-1.2) 10/10/16 06:06 Est GFR ( Amer) TNP 10/10/16 06:06 Est GFR (Non-Af Amer) TNP 10/10/16 06:06 BUN/Creatinine Ratio 32.0 10/10/16 06:06 Glucose 171 mg/dL (70-105) H 10/10/16 06:06 POC Glucose 244 MG/DL (70 - 105) H 10/10/16 11:53 Hemoglobin A1c % 5.3 % (4.0-6.0) 10/07/16 06:02 Calcium 9.4 mg/dL (8.6-10.3) 10/10/16 06:06 Magnesium 2.2 mg/dL (1.9-2.7) 10/07/16 06:02 Total Bilirubin 0.3 mg/dL (0.3-1.0) 10/10/16 06:06 AST 21 U/L (13-39) 10/10/16 06:06 ALT 20 U/L (7-52) 10/10/16 06:06 Alkaline Phosphatase 57 U/L (34-104) 10/10/16 06:06 Total Protein 6.4 gm/dL (6.0-8.3) 10/10/16 06:06 Albumin 3.7 gm/dL (3.7-5.3) 10/10/16 06:06 Globulin 2.7 gm/dL 10/10/16 06:06 Albumin/Globulin Ratio 1.4 (1.0-1.8) 10/10/16 06:06 Vitamin B12 646 pg/mL (211-946) 10/07/16 06:02 Folic Acid 5.3 ng/mL (>3.0) 10/07/16 06:02 TSH 0.66 uIU/ml (0.34-5.60) 10/07/16 06:02 Urine Source CLEAN C 10/07/16 07:05 Urine Color YELLOW 10/07/16 07:05 Urine Clarity CLEAR (CLEAR) 10/07/16 07:05 Urine pH 5.5 10/07/16 07:05 Ur Specific [employer] 1.015 (1.005-1.030) 10/07/16 07:05 Urine Protein NEGATIVE mg/dL (NEGATIVE) 10/07/16 07:05 Urine Glucose (UA) NEGATIVE mg/dL (NEGATIVE) 10/07/16 07:05 Urine Ketones NEGATIVE mg/dL (NEGATIVE) 10/07/16 07:05 Urine Blood NEGATIVE (NEGATIVE) 10/07/16 07:05 Urine Nitrate NEGATIVE (NEGATIVE) 10/07/16 07:05 Urine Bilirubin NEGATIVE (NEGATIVE) 10/07/16 07:05 Urine Urobilinogen 0.2 E.U./dL (0.2 - 1.0) 10/07/16 07:05 Ur Leukocyte Esterase TRACE (NEGATIVE) H 10/07/16 07:05 Urine RBC 0-2 /hpf (0-5) 10/07/16 07:05 Urine WBC 2-5 /hpf (0-5) 10/07/16 07:05 Ur Epithelial Cells FEW /lpf (FEW) 10/07/16 07:05 Urine Bacteria NONE SEEN /hpf (NONE SEEN) 10/07/16 07:05 Influenza A (Rapid) NEG FOR INF A 10/08/16 22:45 Influenza B (Rapid) NEG FOR INF B 10/08/16 22:45 - Physical Exam Vitals and I&O: Vital Signs Temp 98.2 F 10/10/16 04:00 Pulse 71 10/10/16 11:40 Resp 18 10/10/16 11:40 BP 161/71 10/10/16 09:23 Pulse Ox 98 10/10/16 11:40 Intake & Output 10/09/16 10/10/16 10/10/16 18:59 06:59 18:59 Intake Total 1050 150 Balance 1050 150 Intake: Intake, IV Amount 1050 50 Cefepime 1 gm In Dextrose 50 50 5% 50 ml @ 100 mls/hr IV Q12HR [facility] Rx#:[id number] Sodium Chloride 0.45% 1, 1000 000 ml @ 70 mls/hr IV . [id number] [facility] Rx#:[id number] Oral 100 Other: # Voids 4 Active Medications: Current Medications Acetaminophen (Tylenol) 650 mg PO Q4HR PRN PRN Reason: Pain or Fever >101 Stop: 12/05/16 22:21 Albuterol/Ipratropium (Duoneb Neb) 3 ml HHN Q2HR PRN PRN Reason: Shortness of Breath or Wheeze Stop: 12/06/16 09:56 Last Admin: 10/08/16 16:44 Dose: 3 ml Albuterol/Ipratropium (Duoneb Neb) 3 ml HHN Q4HRT [facility] Stop: 12/07/16 18:59 Last Admin: 10/10/16 11:39 Dose: 3 ml Budesonide (Pulmicort) 1 mg HHN BIDRT [facility] Stop: 12/07/16 18:59 Last Admin: 10/10/16 08:19 Dose: 1 mg Donepezil HCl (Aricept) 5 mg PO DAILY [facility] Stop: 12/06/16 08:59 Last Admin: 10/10/16 09:23 Dose: 5 mg Furosemide (Lasix) 40 mg IVP X1 ONE Stop: 10/10/16 15:31 Gabapentin (Neurontin) 300 mg PO TID [facility] Stop: 12/06/16 08:59 Last Admin: 10/10/16 09:23 Dose: 300 mg Guaifenesin (Robitussin) 200 mg PO Q4HR PRN PRN Reason: Cough or Congestion Stop: 12/05/16 22:21 Last Admin: 10/09/16 11:37 Dose: 200 mg Cefepime HCl 1 gm/ Dextrose 50 mls @ 100 mls/hr IV Q12HR [facility] Stop: 12/06/16 08:59 Last Admin: 10/10/16 08:12 Dose: 100 mls/hr Insulin Aspart (Novolog) 0 units SUBQ ACHS [facility] PRN Reason: Protocol Stop: 12/06/16 20:59 Last Admin: 10/10/16 11:59 Dose: 2 units Losartan Potassium (Cozaar) 50 mg PO DAILY [facility] Stop: 12/06/16 08:59 Last Admin: 10/10/16 09:23 Dose: 50 mg Methylprednisolone Sodium Succinate (Solu-Medrol) 40 mg IVP Q6HR [facility] Stop: 12/09/16 17:59 Ondansetron HCl (Zofran) 4 mg IV Q8H PRN PRN Reason: Nausea / Vomiting Stop: 12/05/16 22:21 Pantoprazole Sodium (Protonix) 40 mg PO BID [facility] Stop: 12/08/16 16:59 Last Admin: 10/10/16 09:23 Dose: 40 mg Zolpidem Tartrate (Ambien) 10 mg PO HS PRN PRN Reason: Insomnia Stop: 12/05/16 22:21 Last Admin: 10/08/16 20:22 Dose: 10 mg General: congested, alert HEENT: NC/AT, PERRLA Neck: Supple, No JVD Lungs: congested, wheezing, rales Cardiovascular: RRR, Normal S1, Normal S2 Abdomen: soft non-tender, globular, positive bowel sound Neurological: no change Internal Medicine Assmt/Plan - Assessment Assessment: ACUTE ASTHMA EXACERBATION POSSIBLE PNA DM-2 HTN OBESITY - Plan Plan: cont on iv abx cont on iv steroid o2 bronchodilator tx check cxr felicita rn
[2016-10-10] MEDS: methylPREDNISolone SS 40 mg Vial IVP SCH ×2 (17:57→23:41)
--- NOTE | 2016-10-11 03:29 | Progress Notes ---
PROBLEM LIST: 1. Acute asthmatic bronchitis. 2. Suspect obstructive sleep apnea syndrome with morbid obesity. SYMPTOMS: Nil, feeling okay, still coughing and wheezing, but not as bad. No respiratory distress, etc. PHYSICAL EXAMINATION: VITAL SIGNS: The patient's recorded vitals: Temperature is 98.2, blood pressure 161/71 and saturation is 98. NECK: Veins not visualized. CHEST: Shows occasional rhonchi with diminished air entry. HEART: Regular. ABDOMEN: Soft and nontender. EXTREMITIES: Shows no peripheral edema. Chest x-ray is clear. LABORATORY DATA: White count is 8.8, hemoglobin 11.9 and electrolytes are okay except for ____. ASSESSMENT: The patient is clinically improving with acute asthmatic bronchitis with morbid obesity and suspect obstructive sleep apnea syndrome. PLANS AND SUGGESTIONS: We will switch it to oral steroid inhalation and continue inhalation treatment and if it remains stable in the next 24-48 hours, ____ can be discharged planning and go from there. JOB# [id number]
[2016-10-11] MEDS: Albuterol/Ipratropium Neb 3 ML AERS HHN SCH ×6 (03:48→22:29)
[2016-10-11] MEDS: methylPREDNISolone SS 40 mg Vial IVP SCH ×3 (06:21→18:14)
[2016-10-11] MEDS: INSULIN ASPART, RECOMBINANT 100 UNITS/ML SUBQ SCH ×4 (06:29→21:50)
--- NOTE | 2016-10-11 08:57 | Diagnostic Imaging Report ---
CT scan of the chest without intravenous contrast HISTORY: Mass. Total DLP equals 250 CTDI equals 7.3 Axial sections were obtained from a level above the clavicles down to level below the diaphragm. The overall heart size is normal. Atherosclerotic calcification seen in the aorta. No abnormal mediastinal masses. Evaluation of the hilar structures is limited with the absence of intravenous contrast. No definite abnormalities. There is an approximate 9 mm somewhat spiculated density within the posterior apical region of the left lung. The densities associated with several punctate calcifications. Adjacent mild pleural reaction. Despite the presence of small calcifications, this is considered indeterminate. A follow-up CT scan in 3 months recommended for monitoring. No other abnormal focal pulmonary parenchymal processes. No pleural fluid is seen. Degenerative changes noted to the spine. IMPRESSION: 1. 9 mm somewhat spiculated density within the posterior aspect of the apical region of the left lung. This is associated with several punctate calcifications. Despite the presence of small calcifications, the overall appearance is indeterminate. A follow-up CT scan in 3 months recommended for monitoring. If prior CT scans are available, these would be most beneficial for comparison purposes.
[2016-10-11] MEDS: Budesonide 0.5 Mg/2 mL Ud HHN SCH ×2 (09:08→19:44)
[2016-10-11 09:46] LABS: pH 7.45 (7.35-7.45)
[2016-10-11 09:47] LABS: BE(B) 6.4 mEq/L (-3.0-3.0); HCO3 29.8 mEq/L (20.0-26.0)
[2016-10-11 09:49] LABS: ABG SOURCE Arterial; ALLEN TEST YES; FIO2 28
[2016-10-11] MEDS: Pantoprazole 40 mg EC Tab PO SCH ×2 (09:50→18:14)
--- NOTE | 2016-10-11 15:05 | Internal Medicine Prog Note ---
Internal Medicine Subjective - Subjective Patient seen and examined:: with staff, chart reviewed Patient is:: awake, interactive Per staff patient is:: no episodes of fall, poor appetite Internal Medicine Objective - Results Result Diagrams: 10/10/16 06:06 10/10/16 06:06 Recent Labs: Laboratory Last Values WBC 8.8 Th/cmm (4.8-10.8) 10/10/16 06:06 RBC 3.96 Mil/cmm (3.80-5.20) 10/10/16 06:06 Hgb 11.9 gm/dL (11.7-16.1) 10/10/16 06:06 Hct 34.9 % (35.0-45.0) L 10/10/16 06:06 MCV 88.0 fl (81-100) 10/10/16 06:06 MCH 29.9 pg (27.0-31.0) 10/10/16 06:06 MCHC Differential 34.0 pg (28.0-36.0) 10/10/16 06:06 RDW 12.2 % (11.5-20.0) 10/10/16 06:06 Plt Count 261 Th/cmm (150-400) 10/10/16 06:06 MPV 7.2 fl 10/10/16 06:06 Neutrophils % 84.4 % (40.0-80.0) H 10/07/16 06:02 Band Neutrophils % 2 % (0-10) 10/10/16 06:06 Lymphocytes % 10.9 % (20.0-50.0) L 10/07/16 06:02 Monocytes % 4.4 % (2.0-10.0) 10/07/16 06:02 Eosinophils % 0.1 % (0.0-5.0) 10/07/16 06:02 Basophils % 0.2 % (0.0-2.0) 10/07/16 06:02 Neutrophils (Manual) 87 % (40-80) H 10/10/16 06:06 Lymphocytes 9 % (20-50) L 10/10/16 06:06 Monocytes 1 % (2-10) L 10/10/16 06:06 Metamyelocytes 1 % (0-0) H 10/10/16 06:06 Platelet Estimate ADEQUATE (NORMAL) 10/10/16 06:06 Platelet Morphology NORMAL (NORMAL) 10/10/16 06:06 RBC Morph Micro Appear NORMAL (NORMAL) 10/10/16 06:06 Specimen Source Arterial 10/11/16 09:28 Sample Site Right Radial 10/11/16 09:28 pH 7.45 (7.35-7.45) 10/11/16 09:28 pCO2 45.0 mmHg (35.0-45.0) 10/11/16 09:28 pO2 69.0 mmHg (80.0-100.0) L 10/11/16 09:28 HCO3 29.8 mEq/L (20.0-26.0) H 10/11/16 09:28 Base Excess 6.4 mEq/L (-3.0-3.0) H 10/11/16 09:28 O2 Saturation 94.0 % (92.0-100.0) 10/11/16 09:28 Babar Test YES 10/11/16 09:28 Vent Rate NA 10/11/16 09:28 Inspired O2 28 10/11/16 09:28 Tidal Volume NA 10/11/16 09:28 PEEP NA 10/11/16 09:28 Pressure (ins/psv/peep) NA 10/11/16 09:28 Critical Value E.MEMBRENO 10/11/16 09:28 Sodium 135 mEq/L (136-145) L 10/10/16 06:06 Potassium 3.9 mEq/L (3.5-5.1) 10/10/16 06:06 Chloride 104 mEq/L (98-107) 10/10/16 06:06 Carbon Dioxide 28.0 mEq/L (21.0-31.0) 10/10/16 06:06 Anion Gap 6.9 (7.0-16.0) L 10/10/16 06:06 BUN 32 mg/dL (7-25) H 10/10/16 06:06 Creatinine 1.0 mg/dL (0.6-1.2) 10/10/16 06:06 Est GFR ( Amer) TNP 10/10/16 06:06 Est GFR (Non-Af Amer) TNP 10/10/16 06:06 BUN/Creatinine Ratio 32.0 10/10/16 06:06 Glucose 171 mg/dL (70-105) H 10/10/16 06:06 POC Glucose 222 MG/DL (70 - 105) H 10/11/16 05:58 Hemoglobin A1c % 5.3 % (4.0-6.0) 10/07/16 06:02 Calcium 9.4 mg/dL (8.6-10.3) 10/10/16 06:06 Magnesium 2.2 mg/dL (1.9-2.7) 10/07/16 06:02 Total Bilirubin 0.3 mg/dL (0.3-1.0) 10/10/16 06:06 AST 21 U/L (13-39) 10/10/16 06:06 ALT 20 U/L (7-52) 10/10/16 06:06 Alkaline Phosphatase 57 U/L (34-104) 10/10/16 06:06 Total Protein 6.4 gm/dL (6.0-8.3) 10/10/16 06:06 Albumin 3.7 gm/dL (3.7-5.3) 10/10/16 06:06 Globulin 2.7 gm/dL 10/10/16 06:06 Albumin/Globulin Ratio 1.4 (1.0-1.8) 10/10/16 06:06 Vitamin B12 646 pg/mL (211-946) 10/07/16 06:02 Folic Acid 5.3 ng/mL (>3.0) 10/07/16 06:02 TSH 0.66 uIU/ml (0.34-5.60) 10/07/16 06:02 Urine Source CLEAN C 10/07/16 07:05 Urine Color YELLOW 10/07/16 07:05 Urine Clarity CLEAR (CLEAR) 10/07/16 07:05 Urine pH 5.5 10/07/16 07:05 Ur Specific Michael 1.015 (1.005-1.030) 10/07/16 07:05 Urine Protein NEGATIVE mg/dL (NEGATIVE) 10/07/16 07:05 Urine Glucose (UA) NEGATIVE mg/dL (NEGATIVE) 10/07/16 07:05 Urine Ketones NEGATIVE mg/dL (NEGATIVE) 10/07/16 07:05 Urine Blood NEGATIVE (NEGATIVE) 10/07/16 07:05 Urine Nitrate NEGATIVE (NEGATIVE) 10/07/16 07:05 Urine Bilirubin NEGATIVE (NEGATIVE) 10/07/16 07:05 Urine Urobilinogen 0.2 E.U./dL (0.2 - 1.0) 10/07/16 07:05 Ur Leukocyte Esterase TRACE (NEGATIVE) H 10/07/16 07:05 Urine RBC 0-2 /hpf (0-5) 10/07/16 07:05 Urine WBC 2-5 /hpf (0-5) 10/07/16 07:05 Ur Epithelial Cells FEW /lpf (FEW) 10/07/16 07:05 Urine Bacteria NONE SEEN /hpf (NONE SEEN) 10/07/16 07:05 Influenza A (Rapid) NEG FOR INF A 10/08/16 22:45 Influenza B (Rapid) NEG FOR INF B 10/08/16 22:45 - Physical Exam Vitals and I&O: Vital Signs Temp 97.0 F 10/11/16 12:00 Pulse 80 10/11/16 14:44 Resp 18 10/11/16 14:44 BP 127/76 10/11/16 12:00 Pulse Ox 98 10/11/16 14:44 Intake & Output 10/10/16 10/11/16 10/11/16 18:59 06:59 18:59 Intake Total 550 50 Balance 550 50 Intake: Intake, IV Amount 50 50 Cefepime 1 gm In Dextrose 50 50 5% 50 ml @ 100 mls/hr IV Q12HR [facility] Rx#:[id number] Oral 500 Other: # Voids 3 3 # Bowel Movements 0 Active Medications: Current Medications Acetaminophen (Tylenol) 650 mg PO Q4HR PRN PRN Reason: Pain or Fever >101 Stop: 12/05/16 22:21 Last Admin: 10/10/16 21:33 Dose: 650 mg Albuterol/Ipratropium (Duoneb Neb) 3 ml HHN Q2HR PRN PRN Reason: Shortness of Breath or Wheeze Stop: 12/06/16 09:56 Last Admin: 10/08/16 16:44 Dose: 3 ml Albuterol/Ipratropium (Duoneb Neb) 3 ml HHN Q4HRT [facility] Stop: 12/07/16 18:59 Last Admin: 10/11/16 14:44 Dose: 3 ml Budesonide (Pulmicort) 1 mg HHN BIDRT [facility] Stop: 12/07/16 18:59 Last Admin: 10/11/16 09:08 Dose: 1 mg Donepezil HCl (Aricept) 5 mg PO DAILY [facility] Stop: 12/06/16 08:59 Last Admin: 10/11/16 09:50 Dose: 5 mg Gabapentin (Neurontin) 300 mg PO TID [facility] Stop: 12/06/16 08:59 Last Admin: 10/11/16 13:51 Dose: 300 mg Guaifenesin (Robitussin) 200 mg PO Q4HR PRN PRN Reason: Cough or Congestion Stop: 12/05/16 22:21 Last Admin: 10/09/16 11:37 Dose: 200 mg Cefepime HCl 1 gm/ Dextrose 50 mls @ 100 mls/hr IV Q12HR [facility] Stop: 12/06/16 08:59 Last Admin: 10/11/16 09:50 Dose: 100 mls/hr Insulin Aspart (Novolog) 0 units SUBQ ACHS [place] PRN Reason: Protocol Stop: 12/06/16 20:59 Last Admin: 10/11/16 11:59 Dose: 2 units Losartan Potassium (Cozaar) 50 mg PO DAILY [facility] Stop: 12/06/16 08:59 Last Admin: 10/11/16 09:49 Dose: 50 mg Methylprednisolone Sodium Succinate (Solu-Medrol) 40 mg IVP Q6HR [facility] Stop: 12/09/16 17:59 Last Admin: 10/11/16 12:14 Dose: 40 mg Ondansetron HCl (Zofran) 4 mg IV Q8H PRN PRN Reason: Nausea / Vomiting Stop: 12/05/16 22:21 Pantoprazole Sodium (Protonix) 40 mg PO BID [facility] Stop: 12/08/16 16:59 Last Admin: 10/11/16 09:50 Dose: 40 mg Zolpidem Tartrate (Ambien) 10 mg PO HS PRN PRN Reason: Insomnia Stop: 12/05/16 22:21 Last Admin: 10/08/16 20:22 Dose: 10 mg General: congested HEENT: NC/AT, PERRLA Neck: Supple Lungs: congested, rales, ronchi Cardiovascular: RRR, Normal S1, Normal S2 Abdomen: soft non-tender, globular, positive bowel sound Extremities: excoriation Neurological: no change Internal Medicine Assmt/Plan - Assessment Assessment: ACUTE ASTHMA EXACERBATION POSSIBLE PNA DM-2 HTN OBESITY - Plan Plan: cont on iv abx cont on iv steroid o2 bronchodilator tx check cxr dw rn Nutritional Asmnt/Malnutr-PDOC - Dietary Evaluation Malnutrition Findings (Please click <Entered> for more info): Nutritional Asmnt/Malnutrition Start: 10/11/16 14: 33 Text: Status: Complete Freq: Document 10/11/16 14:33 GSUN (Rec: 10/11/16 14:46 GSUN [email or web address]) Nutritional Asmnt/Malnutrition Patient General Information Nutritional Screening Moderate Risk Screening Diagnosis Acute asthma exacerbation, acute asthmatic bronchitis Pertinent Medical Hx/Surgical Hx HTN, DM2, hypercholesterolemia , GERD Subjective Information [address] attempted to visit pt twice. First time in the morning, observed pt ate 100% of breakfast, PT assisting pt up, pt seen walking around unit with PT. Second time in the afternoon pt was asleep, unable to be woken up. Unable to obtain CBW due to bedscale not properly calibrated. PO intake 50% on adm, increased in PO, 100% yesterday, meeting nutritional needs. Pt noted with possible underlying dementia, DM edu not provided due to this and pt unavilability. Current Diet Order/ Nutrition Support [address] Pertinent Medications Novolog, Solu-Medrol, Zofran, Protonix Pertinent Labs 10/07: A1c 5.3 10/10: BUN 32H, glucose 171H Nutritional Hx/Data Height 1.52 m Height (Calculated Centimeters) 152.4 Current Weight (lbs) 86.183 kg Weight (Calculated Kilograms) 86.2 Weight (Calculated Grams) 18269.6 [place] Body Weight 100 Weight Status Morbidly Obese GI Symptoms Skin Integrity/Comment: Endy 20. Skin intact. Current %PO Good (75-100%) Estimated Nutritional Goals BEE in Kcals: Adj wt of IBW Calories/Kcals/Kg AdjBW 122.5lb/55.7kg Kcals Calculated 1393-1671kcal (25-30kcal/kg) Protein: Adj wt of IBW Protein Calculated 56g (1g/kg) Fluid: ml 1393-1671ml (1ml/kcal) Nutritional Problem 1. Problem Problem Altered nutrition related laboratory values related to Etiology DM aeb Signs/Symptoms: H&P, on [facility] diet Intervention/Recommendation Comments 1. Continue with [address] diet . Avg PO intake is adequate. Expected Outcomes/Goals Expected Outcomes/Goals 1. PO intake to meet at least 75% of estimated nutritional needs.
[2016-10-11] MEDS ORDERED: Magnesium Hydroxide (MOM) 30 mL UDC PO PRN (22:29)
[2016-10-12] MEDS: methylPREDNISolone SS 40 mg Vial IVP SCH ×3 (02:59→11:52)
[2016-10-12] MEDS: Albuterol/Ipratropium Neb 3 ML AERS HHN SCH ×6 (03:18→19:35)
--- NOTE | 2016-10-12 03:26 | Progress Notes ---
PROBLEM LIST: 1. Acute tracheobronchitis. 2. Suspect obstructive sleep apnea syndrome. 3. Calcified lesion, left mid lung posteriorly. SYMPTOMS: The patient is still complaining of shortness of breath. Not too much sputum production. PHYSICAL EXAMINATION: VITAL SIGNS: Temperature is 97.0, blood pressure 120/76 and saturation is okay currently on 2 liters. NECK: Veins not visualized. CHEST: Shows diminished air entry with scattered wheezing. HEART: Regular. ABDOMEN: Soft and nontender. LABORATORY DATA: CT reviewed some interstitial changes at both the bases and there is a calcified lesion in the left mid lung area posteriorly. ASSESSMENT: The patient clinically is stable and not too much change, continuity of ____ with wheezing and coughing and sleep apnea syndrome. PLANS AND SUGGESTIONS: Steroid has been tapered. We will continue current treatment. We will recheck couple of things out in the next 24-48 hours and see how it is and go from there. JOB# [id number]
--- NOTE | 2016-10-12 04:52 | Consultation ---
HISTORY OF PRESENT ILLNESS: I met this patient, discussed with staff, and chart reviewed. Gabonese speaking staff helped with the interview. The patient is an 85-year-old female with multiple medical issues, currently on medical floor, has been feeling sad and depressed, having some crying episodes, some episodes of helplessness. The patient, however, did not have any wishes, did not have any suicidal thoughts. The patient has been passively cooperative with treatment. The patient talked about getting old and how difficult it is for her to see herself sick. PAST PSYCHIATRIC HISTORY: Denied psychiatric hospitalizations. PAST MEDICAL HISTORY: As per Dr. Delaney. PSYCHOSOCIAL HISTORY: Family is supportive and involved in the patient's care. No history of alcohol or illicit drug use. MENTAL STATUS EXAMINATION: The patient was in bed, has obvious psychomotor slowing. Her speech is fluent, low tone, in Gabonese. The patient is oriented to person, knew she was in the hospital, knew her age, and knew her date of . The patient's affect is severely depressed and tearful. ASSESSMENT: Major depressive disorder ____ versus severe. PLAN: We will continue supportive measures, continue medical treatment. Consider small dose of an antidepressant medication. Monitor p.o. intake. The patient might benefit from psychiatric hospitalization given the severity of her depressive symptoms. Thank you for the consultation. JOB# [id number]
[2016-10-12] MEDS: Budesonide 0.5 Mg/2 mL Ud HHN SCH ×2 (06:58→19:35)
[2016-10-12] MEDS ORDERED: Escitalopram Oxalate 5 mg Tab PO SCH (09:00)
[2016-10-12 09:44] LABS: ABG SOURCE Arterial; ALLEN TEST YES; BE(B) 6.6 mEq/L (-3.0-3.0); FIO2 21; HCO3 29.9 mEq/L (20.0-26.0); pH 7.56 (7.35-7.45)
[2016-10-12] MEDS: Pantoprazole 40 mg EC Tab PO SCH (09:54)
[2016-10-12 10:37] LABS: HEMATOCRIT 37.7 % (35.0-45.0); MEAN CELL VOLUME 88.1 fl (81-100); MEAN CORPUSCULAR HEMOGLOBIN 30.3 pg (27.0-31.0); MEAN CORPUSCULAR HGB CONC 34.5 pg (28.0-36.0); MEAN PLATELET VOLUME 7.2 fl; PLATELET COUNT 268 Th/cmm (150-400); RED BLOOD COUNT 4.28 Mil/cmm (3.80-5.20); RED CELL DISTRIBUTION WIDTH 12.3 % (11.5-20.0); WHITE BLOOD COUNT 10.4 Th/cmm (4.8-10.8)
[2016-10-12 10:59] LABS: ALB/GLOB RATIO 1.3 (1.0-1.8); ALKALINE PHOSPHATASE 59 U/L (34-104); ANION GAP 9.3 (7.0-16.0); BILIRUBIN,TOTAL 0.4 mg/dL (0.3-1.0); BUN - UREA NITROGEN 39 mg/dL (7-25); BUN/CREATININE RATIO 35.5; CALCIUM SERUM 8.8 mg/dL (8.6-10.3); CARBON DIOXIDE 28.6 mEq/L (21.0-31.0); CHLORIDE 98 mEq/L (98-107); CREATININE - SERUM 1.1 mg/dL (0.6-1.2); GLUCOSE 371 mg/dL (70-105); MAGNESIUM 2.2 mg/dL (1.9-2.7); POTASSIUM SERUM 3.9 mEq/L (3.5-5.1); SGOT 14 U/L (13-39); SGPT/ALT 23 U/L (7-52); SODIUM SERUM 132 mEq/L (136-145)
[2016-10-12 11:18] LABS: NEUTROPHILS 94 % (40-80); PLATELET ESTIMATE ADEQUATE (NORMAL); TOTAL CELLS COUNTED 100
[2016-10-12] MEDS: INSULIN ASPART, RECOMBINANT 100 UNITS/ML SUBQ SCH ×3 (11:47→18:19)
[2016-10-12] MEDS: guaiFENesin 200 MG/10 ML UDC PO PRN (11:56)
[2016-10-12] MEDS ORDERED: predniSONE 5 mg/5 mL UDC PO SCH (17:00)
--- NOTE | 2016-10-13 04:18 | Progress Notes ---
PULMONARY PROGRESS NOTE PROBLEM LIST: 1. Acute respiratory failure with tracheobronchitis. 2. Metabolic syndrome with morbid obesity with suspect obstructive sleep apnea syndrome. SYMPTOMS: Nil. Feeling better than what it has been. No respiratory distress, etc. PHYSICAL EXAMINATION: VITAL SIGNS: Temperature is 97.6, blood pressure 136/66, and saturation 96. NECK: Veins not visualized. CHEST: Shows diminished air entry with occasional rhonchi. HEART: Regular. EXTREMITIES: Shows no peripheral edema. LABORATORY DATA: White count is 10.4. ABG shows mixed alkalosis with pO2 of 55 and this is on room air. Electrolytes show sodium is 132 and glucose is in 300s. ASSESSMENT: Overall, the patient clinically is doing much better. PLANS AND SUGGESTIONS: We will go ahead and switch steroid orally. Discharge planning should be okay. Hopefully, can discharge in next 24 hours or so and go from there. JOB# [id number]
--- NOTE | 2016-12-17 20:55 | Discharge Summary ---
DATE OF DISCHARGE: 10/12/2016 CHIEF COMPLAINT: Acute stroke, pain. FINAL DIAGNOSES: Acute asthma exacerbation, pneumonia, diabetes, hypertension, obesity, psych disorder. HISTORY OF PRESENT ILLNESS: This is an 86-year-old female with history of shortness of breath and ____. The patient was seen initially at [facility] and ____ discharged. The patient was transferred for continued care and treatment. PHYSICAL EXAMINATION: VITAL SIGNS: Blood pressure 112/64, respirations 18, pulse 80, temperature 98.6. GENERAL: Elderly female, appears her stated age. NECK: Supple. No mass. LUNGS: Equal breath sounds, few rhonchi. HEART: Regular rate and rhythm with systolic ejection murmur. ABDOMEN: Soft, nontender. EXTREMITIES: Positive excoriations. NEUROLOGIC: Limited. HOSPITAL COURSE: The patient was admitted and will continue on oxygen and bronchodilator treatment. The patient was referred to Dr. Chandler Thompson for Pulmonary and referred to Physical Therapy, also referred to Dr. Bertrand secondary to depression, started on Lexapro. The patient's condition has improved and cleared for discharge. CONDITION ON DISCHARGE: Fair. DISCHARGE INSTRUCTIONS: The patient is to continue on oral antibiotic regimen and bronchodilator treatments and oral steroids. The patient will follow with ____ upon discharge. [facility]# [id number]
== END 2016-10-12 19:55 | DRG 193 ==
LOC: TELE 21:00 → MSI 10-10 15:29
PROVIDERS: ADMIT Internal Medicine; ATTEND Internal Medicine
DX: J18.9 Pneumonia, unspecified organism (principal); J96.90 Respiratory failure, unspecified, unspecified whether with hypoxia or hypercapnia; J45.901 Unspecified asthma with (acute) exacerbation; E66.01 Morbid (severe) obesity due to excess calories; E88.81 Metabolic syndrome and other insulin resistance; K21.9 Gastro-esophageal reflux disease without esophagitis; I10 Essential (primary) hypertension; E11.9 Type 2 diabetes mellitus without complications; E78.5 Hyperlipidemia, unspecified; G47.33 Obstructive sleep apnea (adult) (pediatric); R07.9 Chest pain, unspecified; F32.9 Major depressive disorder, single episode, unspecified; Z68.37 Body mass index [BMI] 37.0-37.9, adult
CPT/HCPCS: 36415-UA; 36600-90; 71010-TC; 71250-TC; 80048-TC; 80053-TC; 81001-TC; 82607-90; 82746-90; 82803-TC; 82948-90; 83036-90; 83735-TC; 84443-TC; 85007-TC; 85025-TC; 85027-TC; 87070; 87804-TC; 90779; 94640; 94668; 94760; 97530; J0692; J1815; J1940; J2920; J7030; J7512; J7613; X3904; Z7610